=== PATIENT | female | born 1985 | race Two or more races ===

== ENCOUNTER 2021-10-19 14:07 | Emergency (ER) | payer OTHER ==
[~2021-10-19] VITALS: Ht 160 cm; Wt 70.3 kg
[2021-10-19] MEDS ORDERED: SULF1TAB42 PO (17:20)
[2021-10-19 17:48] VITALS: BP 118/67
== END 2021-10-19 17:51 | disposition home or self-care (01) ==
LOC: EEVIPCON 14:07 → EDH 14:07
DX: L02.416 Cutaneous abscess of left lower limb (principal); Z79.899 Other long term (current) drug therapy